=== PATIENT | male | born 1940 | race Caucasian/White ===

== ENCOUNTER 2016-04-23 22:21 | Inpatient (IN) | payer MEDICARE ==
[~2016-04-23] VITALS: Ht 188 cm; Wt 77.6 kg
[2016-04-23] MEDS ORDERED: IV NS 0.9% 1,000 ML ONE (23:37)
[2016-04-23] MEDS ORDERED: IV SET PRIMARY 1 EA INFUS.SET MC ONE (23:37)
[2016-04-23] MEDS ORDERED: TETRACAINE HCL/PF 0.5% UD 2 ML BOTTLE ONE (23:38)
[2016-04-23] MEDS ORDERED: FLUORESCEIN SODIUM OPHTH 1 EA STRIP ONE (23:38)
[2016-04-23 23:58] LABS: BASOPHILS # (AUTO) 0.1 /CMM (0.0-0.2); BASOPHILS % (AUTO) 0.6 % (0.0-2.0); DIFF TOTAL % 100 %; EOSINOPHILS # (AUTO) 0.4 /CMM (0.0-0.7); HEMATOCRIT 38 % (39-51); HEMOGLOBIN 12.6 g/dL (13.5-17.5); LYMPHOCYTES # (AUTO) 1.6 /CMM (0.8-4.8); LYMPHOCYTES % (AUTO) 17.3 % (20.0-44.0); MEAN CORPUSCULAR HEMOGLOBIN 32 PG (26.0-33.0); MEAN CORPUSCULAR HGB CONC 33 g/dl (31.0-36.0); MEAN CORPUSCULAR VOLUME 97 fL (80-96); MONOCYTES # (AUTO) 0.7 /CMM (0.1-1.30); MONOCYTES % (AUTO) 7.3 % (2.0-12.0); NEUTROPHILS # (AUTO) 6.7 /CMM (1.8-8.9); NEUTROPHILS % (AUTO) 70.8 % (43.0-81.0); PLATELET COUNT (AUTO) 237 /CMM (150-450); RED BLOOD CELL COUNT(AUTO) 3.97 MIL/uL (4.5-6.0); WHITE BLOOD COUNT (AUTO) 9.4 K/uL (4.3-11.0)
[2016-04-24] MEDS ORDERED: FLUORESCEIN SODIUM OPHTH 1 EA STRIP OP ONE
[2016-04-24] MEDS ORDERED: TETRACAINE HCL/PF 0.5% UD 2 ML BOTTLE OP ONE
[2016-04-24 00:11] LABS: CALCIUM, SERUM 8.5 mg/dL (8.5-10.1); CREATININE 0.9 mg/dL (0.6-1.3); POTASSIUM 4.4 mmol/L (3.5-5.1)
[2016-04-24 00:17] LABS: ALBUMIN 2.7 g/dL (3.4-5.0); BILIRUBIN,DIRECT 0.2 mg/dL (0.0-0.2); BILIRUBIN,TOTAL 0.6 mg/dL (0.2-1.0); INDIRECT BILIRUBIN 0.4 mg/dL (0.0-1.1); TOTAL PROTEIN, SERUM 6.1 g/dL (6.4-8.2)
[2016-04-24 00:30] LABS: INR 1.04 (0.87-1.13); PROTHROMBIN TIME 11.2 SECS (9.5-12.7)
[2016-04-24] MEDS ORDERED: LIDOCAINE 2% JEL UROJET 10 ML MM ONE (01:18)
[2016-04-24] MEDS ORDERED: IV NS 0.9% 1,000 ML BAG IV ONE (01:30)
[2016-04-24] MEDS ORDERED: HALOPERIDOL 1 MG TABLET ONE (01:48)
[2016-04-24] MEDS ORDERED: HALOPERIDOL 1 MG TABLET PO ONE (02:00)
[2016-04-24 02:08] LABS: ADD UA MICROSCOPIC YES; KETONES,URINE NEGATIVE (NEGATIVE); LEUKOCYTE ESTERASE ,URINE 1+ (NEGATIVE)
[2016-04-24 02:27] LABS: ADD URINE CULTURE YES; RBC,URINE NONE SEEN /HPF (0-2)
[2016-04-24] MEDS ORDERED: ASPI-991 PO (02:57)
[2016-04-24] MEDS ORDERED: SODI1TAB3 PO (02:57)
[2016-04-24] MEDS ORDERED: GUAI100S94 PO (02:57)
[2016-04-24] MEDS ORDERED: ACET325T80 PO (02:57)
[2016-04-24] MEDS ORDERED: HALO1TAB PO (02:57)
[2016-04-24] MEDS ORDERED: MONT10TA22 PO (02:57)
[2016-04-24] MEDS ORDERED: CARB-36 PO (02:57)
[2016-04-24] MEDS ORDERED: GUAI100S11 PO (02:57)
[2016-04-24] MEDS ORDERED: CHOL100034 PO (02:57)
[2016-04-24] MEDS ORDERED: ALLA266C2 TP (02:57)
[2016-04-24] MEDS ORDERED: [UNRECOGNIZED DRUG - CODE] IS (02:57)
[2016-04-24] MEDS ORDERED: VALS160T24 PO (02:57)
[2016-04-24] MEDS ORDERED: ATOR40TA PO (02:57)
[2016-04-24] MEDS ORDERED: CARV6.25 PO (02:57)
[2016-04-24] MEDS ORDERED: TAMS0.4C34 PO (02:57)
[2016-04-24] MEDS ORDERED: AMIO200T2 PO (02:57)
[2016-04-24] MEDS ORDERED: CEFTRIAXONE 1GM BAG (ER ONLY) 1 GM/50 ML PIGGYBACK IV ONE (03:00)
[2016-04-24] MEDS ORDERED: GENTAMICIN OPTH SOLN 0.3% 5 ML BOTTLE OP ONE (03:00)
[2016-04-24] MEDS ORDERED: GENTAMICIN OPTH SOLN 0.3% 5 ML BOTTLE ONE (03:04)
[2016-04-24] MEDS ORDERED: CEFTRIAXONE 1GM BAG (ER ONLY) 50 ML IV ONE (03:04)
[2016-04-24] MEDS ORDERED: IV SET PRIMARY 1 EA INFUS.SET MC ONE (03:04)
[2016-04-24 04:10] VITALS: BP 166/88
[2016-04-24] MEDS ORDERED: IV SET PRIMARY PUMP SET 1 EA INFUS.SET MC ONE (04:44)
[2016-04-24] MEDS ORDERED: IV NS 0.9% 1,000 ML BAG IV SCH (05:00)
[2016-04-24] MEDS ORDERED: IV NS 0.9% 1,000 ML IV PRN (08:30)
[2016-04-24] MEDS ORDERED: ACETAMINOPHEN 325 MG TABLET PO PRN (10:00)
[2016-04-24] MEDS ORDERED: GUAIFENESIN 300 MG/15 ML UDC PO PRN ×2 (10:00)
[2016-04-24] MEDS: SODIUM CHLORIDE 1000 MG TABLET.SOL PO SCH (11:13)
[2016-04-24] MEDS: CHOLECALCIFEROL 1,000 UNIT TABLET (VIT D3) PO SCH (11:13)
[2016-04-24] MEDS: CARBIDOPA/LEVODOPA 25/100 MG 1 UDTAB PO SCH ×2 (11:13→16:39)
[2016-04-24] MEDS: ASPIRIN EC 81 MG TABLET.DR PO SCH (11:13)
[2016-04-24 13:58] LABS: BASOPHILS % (AUTO) 0.3 % (0.0-2.0); DIFF TOTAL % 100 %; EOSINOPHILS # (AUTO) 0.3 /CMM (0.0-0.7); EOSINOPHILS % (AUTO) 2.7 % (0.0-6.0); HEMATOCRIT 42 % (39-51); HEMOGLOBIN 13.9 g/dL (13.5-17.5); LYMPHOCYTES # (AUTO) 1.3 /CMM (0.8-4.8); LYMPHOCYTES % (AUTO) 13.4 % (20.0-44.0); MEAN CORPUSCULAR HEMOGLOBIN 32 PG (26.0-33.0); MEAN CORPUSCULAR HGB CONC 33 g/dl (31.0-36.0); MEAN CORPUSCULAR VOLUME 97 fL (80-96); MONOCYTES # (AUTO) 0.7 /CMM (0.1-1.30); MONOCYTES % (AUTO) 6.8 % (2.0-12.0); NEUTROPHILS # (AUTO) 7.5 /CMM (1.8-8.9); NEUTROPHILS % (AUTO) 76.8 % (43.0-81.0); PLATELET COUNT (AUTO) 261 /CMM (150-450); RED BLOOD CELL COUNT(AUTO) 4.31 MIL/uL (4.5-6.0); WHITE BLOOD COUNT (AUTO) 9.8 K/uL (4.3-11.0)
[2016-04-24 14:11] LABS: CALCIUM, SERUM 8.6 mg/dL (8.5-10.1); CREATININE 0.8 mg/dL (0.6-1.3); PHOSPHORUS 3.4 mg/dL (2.5-4.9); POTASSIUM 3.7 mmol/L (3.5-5.1)
[2016-04-24] MEDS: HALOPERIDOL 1 MG TABLET PO SCH ×2 (16:39→21:23)
[2016-04-24] MEDS: NEOMY SULF/BACITRAC ZN/POLY 15 GM TUBE TP SCH (16:39)
[2016-04-24] MEDS: CARVEDILOL 6.25 MG TABLET PO SCH (16:39)
[2016-04-24 20:00] VITALS: BP 165/89
[2016-04-24] MEDS ORDERED: Z GUARD REMEDY 2 OZ OINT TP PRN (21:00)
[2016-04-24] MEDS: VALSARTAN 80 MG TABLET PO SCH (21:22)
[2016-04-24] MEDS: TAMSULOSIN 0.4 MG CAP.SR.24H PO SCH (21:24)
[2016-04-24] MEDS: ATORVASTATIN 40 MG TABLET PO SCH (21:26)
[2016-04-24] MEDS: MONTELUKAST SODIUM (10MG) 10 MG TABLET PO SCH (21:26)
[2016-04-25] MEDS: CEFTRIAXONE 1 G in IV D5W 50 ML IV SCH (05:00)
[2016-04-25 08:00] VITALS: BP 160/96
[2016-04-25] MEDS: CHOLECALCIFEROL 1,000 UNIT TABLET (VIT D3) PO SCH (09:57)
[2016-04-25] MEDS: CARBIDOPA/LEVODOPA 25/100 MG 1 UDTAB PO SCH ×3 (09:57→16:34)
[2016-04-25] MEDS: SODIUM CHLORIDE 1000 MG TABLET.SOL PO SCH (09:57)
[2016-04-25] MEDS: ASPIRIN EC 81 MG TABLET.DR PO SCH (09:57)
[2016-04-25] MEDS: AMIODARONE HCL 200 MG TABLET PO SCH (09:59)
[2016-04-25] MEDS: CARVEDILOL 6.25 MG TABLET PO SCH ×2 (09:59→16:32)
[2016-04-25] MEDS: VALSARTAN 80 MG TABLET PO SCH ×2 (09:59→21:21)
[2016-04-25] MEDS: HALOPERIDOL 1 MG TABLET PO SCH ×4 (10:01→21:23)
[2016-04-25] MEDS: NEOMY SULF/BACITRAC ZN/POLY 15 GM TUBE TP SCH (10:02)
[2016-04-25 16:00] VITALS: BP 107/64
[2016-04-25 20:00] VITALS: BP 137/69
[2016-04-25 20:09] VITALS: BP 137/69
[2016-04-25] MEDS: TAMSULOSIN 0.4 MG CAP.SR.24H PO SCH (21:21)
[2016-04-25] MEDS: MONTELUKAST SODIUM (10MG) 10 MG TABLET PO SCH (21:22)
[2016-04-25] MEDS: ATORVASTATIN 40 MG TABLET PO SCH (21:22)
[2016-04-26] MEDS ORDERED: SECONDARY IV SET 1 EA INFUS.SET MC ONE (06:35)
[2016-04-26] MEDS: CEFTRIAXONE 1 G in IV D5W 50 ML IV SCH (06:35)
[2016-04-26 08:00] VITALS: BP 155/83
[2016-04-26] MEDS: NEOMY SULF/BACITRAC ZN/POLY 15 GM TUBE TP SCH (09:00)
[2016-04-26] MEDS: CARBIDOPA/LEVODOPA 25/100 MG 1 UDTAB PO SCH ×3 (09:00→16:31)
[2016-04-26] MEDS: HALOPERIDOL 1 MG TABLET PO SCH ×4 (09:00→21:47)
[2016-04-26] MEDS: CHOLECALCIFEROL 1,000 UNIT TABLET (VIT D3) PO SCH (09:00)
[2016-04-26] MEDS: SODIUM CHLORIDE 1000 MG TABLET.SOL PO SCH (09:00)
[2016-04-26] MEDS: VALSARTAN 80 MG TABLET PO SCH ×2 (09:49→21:02)
[2016-04-26] MEDS: CARVEDILOL 6.25 MG TABLET PO SCH ×2 (09:50→16:35)
[2016-04-26] MEDS: ASPIRIN EC 81 MG TABLET.DR PO SCH (09:51)
[2016-04-26] MEDS: AMIODARONE HCL 200 MG TABLET PO SCH (09:58)
[2016-04-26 20:00] VITALS: BP 141/78
[2016-04-26] MEDS: TAMSULOSIN 0.4 MG CAP.SR.24H PO SCH (21:02)
[2016-04-26] MEDS: MONTELUKAST SODIUM (10MG) 10 MG TABLET PO SCH (21:02)
[2016-04-26] MEDS: ATORVASTATIN 40 MG TABLET PO SCH (21:47)
[2016-04-27] MEDS: CEFTRIAXONE 1 G in IV D5W 50 ML IV SCH (05:13)
[2016-04-27 08:00] VITALS: BP 136/83
[2016-04-27] MEDS: NEOMY SULF/BACITRAC ZN/POLY 15 GM TUBE TP SCH (09:00)
[2016-04-27] MEDS: SODIUM CHLORIDE 1000 MG TABLET.SOL PO SCH (09:14)
[2016-04-27] MEDS: ASPIRIN EC 81 MG TABLET.DR PO SCH (09:14)
[2016-04-27] MEDS: CHOLECALCIFEROL 1,000 UNIT TABLET (VIT D3) PO SCH (09:14)
[2016-04-27] MEDS: CARBIDOPA/LEVODOPA 25/100 MG 1 UDTAB PO SCH ×3 (09:15→16:15)
[2016-04-27] MEDS: AMIODARONE HCL 200 MG TABLET PO SCH (09:15)
[2016-04-27] MEDS: CARVEDILOL 6.25 MG TABLET PO SCH ×2 (09:16→16:16)
[2016-04-27] MEDS: VALSARTAN 80 MG TABLET PO SCH ×2 (09:16→21:38)
[2016-04-27] MEDS: HALOPERIDOL 1 MG TABLET PO SCH ×4 (09:18→21:38)
[2016-04-27] MEDS: NITROFURANTOIN/NITROFURAN MAC 100 MG CAPSULE PO SCH ×2 (11:25→21:37)
[2016-04-27 16:01] VITALS: BP 158/90
[2016-04-27 20:00] VITALS: BP 148/79
[2016-04-27] MEDS: ATORVASTATIN 40 MG TABLET PO SCH (21:38)
[2016-04-27] MEDS: MONTELUKAST SODIUM (10MG) 10 MG TABLET PO SCH (21:38)
[2016-04-27] MEDS: TAMSULOSIN 0.4 MG CAP.SR.24H PO SCH (21:38)
[2016-04-27 22:00] VITALS: BP 148/79
[2016-04-28 08:00] VITALS: BP 150/80
[2016-04-28] MEDS: SODIUM CHLORIDE 1000 MG TABLET.SOL PO SCH (09:00)
[2016-04-28] MEDS: NITROFURANTOIN/NITROFURAN MAC 100 MG CAPSULE PO SCH (09:00)
[2016-04-28] MEDS: CARBIDOPA/LEVODOPA 25/100 MG 1 UDTAB PO SCH ×2 (09:34→12:52)
[2016-04-28] MEDS: CHOLECALCIFEROL 1,000 UNIT TABLET (VIT D3) PO SCH (09:34)
[2016-04-28] MEDS: HALOPERIDOL 1 MG TABLET PO SCH ×2 (09:35→12:52)
[2016-04-28] MEDS: CARVEDILOL 6.25 MG TABLET PO SCH (09:35)
[2016-04-28] MEDS: AMIODARONE HCL 200 MG TABLET PO SCH (09:35)
[2016-04-28] MEDS: ASPIRIN EC 81 MG TABLET.DR PO SCH (09:35)
[2016-04-28 09:36] VITALS: BP 150/80
[2016-04-28] MEDS: VALSARTAN 80 MG TABLET PO SCH (09:36)
[2016-04-28] MEDS: NEOMY SULF/BACITRAC ZN/POLY 15 GM TUBE TP SCH (09:40)
== END 2016-04-28 15:30 | DRG 689 ==
LOC: ER 22:23 → MEDSG2 04-24 03:47
PROVIDERS: ADMIT Internal Medicine Nephrology; ATTEND Internal Medicine Nephrology
DX: N39.0 Urinary tract infection, site not specified (principal); G92 Toxic encephalopathy; L03.116 Cellulitis of left lower limb; I10 Essential (primary) hypertension; Z95.1 Presence of aortocoronary bypass graft; H10.9 Unspecified conjunctivitis; F29 Unspecified psychosis not due to a substance or known physiological condition; F03.90 Unspecified dementia, unspecified severity, without behavioral disturbance, psychotic disturbance, mood disturbance, and anxiety; Z91.19 Patient's noncompliance with other medical treatment and regimen; B95.2 Enterococcus as the cause of diseases classified elsewhere; Z95.0 Presence of cardiac pacemaker; W19.XXXA Unspecified fall, initial encounter; Y93.9 Activity, unspecified; Y92.89 Other specified places as the place of occurrence of the external cause; Y99.9 Unspecified external cause status
CPT/HCPCS: 36415; 70450-TC; 71010-TC; 72125-TC; 72170-TC; 80048-TC; 80076-TC; 81000-TC; 82550-TC; 83735-TC; 84100-TC; 85025-TC; 85730-TC; 87081-TC; 87086-TC; 87186-TC; 97001-TC; 97116-TC; 97530-TC; A4606; A6402; J0696; J3490; J7030; J7060; Z7610